=== PATIENT | male | born 1965 | race Caucasian/White ===

== ENCOUNTER 2023-09-24 20:53 | Emergency (ER) | payer OTHER, SELFPAY ==
[2023-09-24 20:53] VITALS: BMI 24.3
[2023-09-24 20:55] VITALS: BP 104/70
[2023-09-24 21:14] LABS: Urine Albumin Negative (Neg - Trace); Urine Bilirubin Negative (Negative); Urine Character Clear (Clear); Urine Color Yellow; Urine Glucose Negative (Negative); Urine Ketone Trace (Negative); Urine Leukocyte Negative (Negative); Urine Nitrite Negative (Negative); Urine Occult Blood 2+ (Negative); Urine Specific Gravity 1.015 (<1.030); Urine Urobilinogen Negative (Neg - 1+)
[2023-09-24 21:15] LABS: % Basophils 0.2 % (0-2); % Eosinophils 0.7 % (0-6); % Immature Granulocytes 0.4 % (0-0.5); % Lymphocytes 11.1 % (20.5-51.1); % Monocytes 8.8 % (1.7-9.3); % Neutrophils 78.8 % (42.2-75.2); Absolute Eosinophils 0.1 10^3/uL (0-0.7); Absolute Immature Granulocytes 0.1 10^3/uL (0-0.05); Absolute Lymphocytes 1.5 10^3/uL (1.2-3.4); Absolute Monocytes 1.2 10^3/uL (0.1-0.6); Absolute Neutrophils 10.6 10^3/uL (1.4-6.5); Hematocrit 39.1 % (39.0-52.0); Hemoglobin 13.6 g/dL (13.0-18.0); Mean Corp Hgb Conc. 34.8 g/dL (33.0-37.0); Mean Corpuscular Hgb 29.8 pg (27.0-31.0); Mean Corpuscular Volume 85.7 fL (80.0-94.0); Mean Platelet Volume 10.8 fL (7.4-10.4); Nucleated Red Blood Cells % 0 % (-); Platelet Count 240 10^3/uL (130-400); Red Blood Cell Count 4.56 10^6/uL (4.70-6.10); Red Cell Dist. Width 12.3 % (11.5-14.5); White Blood Cell Count 13.5 10^3/uL (4.8-10.8)
[2023-09-24 21:20] LABS: Urine Bacteria Few (Negative); Urine White Cell 0-2 /HPF (0-5)
[2023-09-24 21:33] LABS: ALT (SGPT) 16 U/L (0-50); AST (SGOT) 25 U/L (17-59); Albumin 4.5 g/dl (3.5-5.0); Alkaline Phosphatase 79 U/L (38-126); Blood Urea Nitrogen 13 mg/dl (9-20); Calcium 9.3 mg/dl (8.4-10.2); Carbon Dioxide 28 mmol/L (22-30); Chloride 103 mmol/L (98-107); Glucose 110 mg/dl (70-99); Lipase 85 U/L (23-300); Potassium 4.2 mmol/L (3.5-5.1); Sodium 135 mmol/L (135-145); Total Bilirubin 1.1 mg/dl (0.2-1.3); Total Protein 7.4 g/dl (6.3-8.2); eGFR > 60.00
[2023-09-24 22:01] VITALS: BP 113/68
[2023-09-24 23:00] VITALS: BP 113/63
--- NOTE | 2023-09-24 23:15 | ED.GENMED ---
History of Present Illness
General
Chief Complaint: Abdominal Pain
Source: patient, spouse and previous hospital records (Inguinal hernia repair 2009 as well as 2011)
Exam Limitations: none
Time Seen by Provider: 09/24/23 23:05
Nursing documentation reviewed up to this point in time: agreed with
Travel History
Have you had any contact with someone who has COVID-19?: No
Do you have any symptoms of coronavirus? Fever > 100 degrees, chills, cough, shortness of breath, sore throat, loss of taste or smell, muscle aches, or headache?: No
History of Present Illness
History of Present Illness:
This is a 57-year-old gentleman who complains of right lower quadrant pain that began mildly yesterday afternoon/evening. Initially thought he had pulled a muscle as pain began after shoveling snow yesterday. Pain however has been persistent and
progressively worsening throughout the day today with intermittent nausea without vomiting and onset of chills and mild aches tonight. No history of similar episodes of pain.
Pain is worse with movement, improves with lying still. He denies back pain or flank pain, no dysuria and urgency and or hematuria, no diarrhea or constipation. He does admit to decreased appetite this evening.
He has not taken anything for discomfort.
He takes no medicines on a daily basis.
History of right inguinal hernia repair 2009, left inguinal hernia repair 2011.
Past History
Past History
ED Past Medical History: None
ED Past Surgical History: Orthopedic (Foot surgery 1984) and Other (Right inguinal hernia repair 2009, left inguinal hernia repair 2011; nasal surgery 2006 and 2007)
Social History
Tobacco: Non-smoker
Alcohol: Occasional
Drug: None
Personal:
Living: with family
Employment: Employed (teacher)
Family History
Family History: Other (Noncontributory)
Phy Exam
Physical Exam
Physical Exam:
GENERAL: 57-year-old gentleman appears his stated age, awake and alert, appears mildly uncomfortable related to pain. Low-grade fever noted. Spouse at bedside.
EYE: anicteric
NECK: Supple, nontender, no meningismus, no significant adenopathy.
ENT: oral mucosa is moist. No rhinorrhea.
CARDIAC: Regular rate and rhythm. no murmur.
LUNGS: Clear breath sounds bilaterally, no acute respiratory distress, no wheezes/rales/rhonchi
ABDOMEN: Soft, nondistended, exquisite tenderness right lower quadrant, right mid abdomen with mild local guarding, mild rebound, no rigidity, no palpable masses. No inguinal tenderness nor masses, no cvat. normoactive BS.
NEUROLOGICAL: Alert and oriented x3, no focal neuro deficits.
SKIN: Warm and dry, normal color, skin intact. No rash.
MUSCULOSKELETAL: No C/C/E. peripheral pulses are full and equal b/l. No palpable tenderness.
PSYCH: Normal and appropriate interaction.
Course
Orders/Labs/Results
Orders:
Orders
09/24/23 20:57
IV Insert/Care/Rem.- Treatment PRN
09/24/23 21:07
Complete Blood Count/With Diff Urgent
Comprehensive Metabolic Panel Urgent
Lipase Urgent
Urinalysis Reflex To Culture Urgent
Date Specimen was Collected: 09/24/23
Time Specimen was Collected: 20:58
Urine Microscopic Reflex Cult Urgent
09/24/23 23:13
0.9% Sodium Chloride 1000 ml [Nss] 1,000 ml IV BOLUS
HYDROmorphone [Dilaudid] 0.5 mg IV NOW STA
Ondansetron Injectable [Zofran] 4 mg IV NOW STA
09/24/23 23:14
CT Abd/pelvis W Iv Cont Urgent
Comment:
Reason For Exam: RLQ pain x 24 hours, progressive, WBC 13.5, T=99.6
09/25/23 00:34
Piperacillin/Tazo 4.5 Gram [Zosyn] 4.5 gram in 100 ml IV NOW
Abnormal Lab Results
09/24/23
21:07
WBC 13.5 H 10^3/uL
(4.8-10.8)
RBC 4.56 L 10^6/uL
(4.70-6.10)
MPV 10.8 H fL
(7.4-10.4)
Abs Immat Gran (auto) 0.1 H 10^3/uL
(0-0.05)
Absolute Neuts (auto) 10.6 H 10^3/uL
(1.4-6.5)
Absolute Monos (auto) 1.2 H 10^3/uL
(0.1-0.6)
Neutrophils % 78.8 H %
(42.2-75.2)
Lymphocytes % 11.1 L %
(20.5-51.1)
Glucose 110 H mg/dl
(70-99)
Urine Ketones Trace A
(Negative)
Ur Occult Blood Reflex 2+ A
(Negative)
Urine RBC 7-10 A /HPF
(0-2)
Urine Bacteria (Reflex) Few A
(Negative)
09/24/23 21:07
09/24/23 21:07
Vital Signs
Initial and Last Documented VS:
Initial Vital Signs
Temp Pulse Resp BP Pulse Ox
98.0 F 84 19 104/70 96
09/24/23 20:55 09/24/23 20:55 09/24/23 20:55 09/24/23 20:55 09/24/23 20:55
Last Documented Vital Signs
Temp Pulse Resp BP Pulse Ox
99.6 F 84 19 99/87 95
09/24/23 22:18 09/24/23 20:55 09/24/23 20:55 09/25/23 01:00 09/25/23 01:30
MDM/Problems Addressed
Differential Diagnosis Includes:
Concern for acute appendicitis, right colon diverticulitis, epiploic appendagitis, less likely small bowel obstruction.
No risk factors for ischemic bowel.
Labs thus far reveal mildly elevated white blood cell count of 13.5.
Unremarkable chemistries.
Nothing in history nor exam to suggest UTI/pyelonephritis.
Will medicate for pain and nausea, initiate IV fluids and check CT abdomen pelvis.
*Radiology
Radiology exam reviewed: radiology read reviewed (CT shows cecal diverticulitis, normal appendix. No evidence of abscess nor obstruction.)
*Pulse Oximetry
Patient hypoxic: no
*Critical Care Note
Total Time (30-74mins, 75-104mins- exclusive of procedures): Not Applicable
Update Note
Update Note:
Patient feeling improved and resting comfortably after small IV dose of Dilaudid, Zofran, IV fluids.
He continues with mild to moderate tenderness right lower quadrant but markedly improved.
CAT scan shows cecal diverticulitis with mild to moderate inflammatory wall thickening and pericolonic fat stranding centered around a 2.2 cm cecal diverticulum. Normal appendix. No free air nor evidence of abscess.
Patient has been given an IV dose of Zosyn.
We discussed hospitalization for continued pain control which he declines and would rather go home.
Will discharge home with 10-day course of Augmentin.
A prescription for Vicodin for as needed pain and Zofran for as needed nausea.
Recommend he limit his diet to clear liquids over the next 3 days, slowly advance thereafter.
Follow-up with PCP and recommend follow-up with GI as well.
Return precautions discussed.
ED Attending Note
-
Portions of this chart may have been created with voice recognition software.� Occasional wrong word or��sound alike� substitutions may have occurred due to the inherent limitations of voice recognition software.
Discharge Plan
Departure
Patient Disposition: Home (Routine Discharge)
Date of Disposition: 09/25/23
Time of Disposition: 02:02
Patient with high blood pressure during this ER visit?: No
Condition: Good
Discharge Problem:
Cecal diverticulitis
Instructions: Clear Liquid Diet, Diverticulitis (DC)
Prescriptions:
New
amoxicillin-pot clavulanate 875-125 mg tablet
1 tab PO BID Qty: 20 0RF
ondansetron 4 mg tablet,disintegrating
4 mg PO QID PRN (Reason: nausea and vomiting) Qty: 20 0RF
hydrocodone-acetaminophen 5-300 mg tablet
1 tab PO Q8H PRN (Reason: pain) Qty: 10 0RF
Referrals:
Michael Carter MD [Active] - Call in 1-3 days for appt
Matteo Graf DO [Family Provider] - Call in 1-3 days for appt
Stand Alone Forms: Return to Work
Activity Restrictions/Additional Instructions:
Over the next 3 days, limit your diet to clear liquids only. This includes clear juices, Jell-O, sherbet, ice pops, clear soups. Thereafter you can advance to soft bland foods as tolerated.
You can take Tylenol or ibuprofen as needed for mild pain or fever. A prescription for hydrocodone has been provided for as needed moderate pain.
You have been prescribed a 10-day course of Augmentin, an antibiotic to be taken twice daily. Be sure to finish this.
Follow-up with your primary care physician for recheck and we recommend an outpatient evaluation with gastroenterology as well.
Interventions
Interventions:
*Risk Screen - Suicide Last Done: 09/24/23 20:55
*General Assessment Last Done: 09/24/23 20:55
*Neglect/Abuse Screening Last Done: 09/24/23 20:55
*ED COVID-19 Vaccine History Last Done: 09/24/23 20:55
[facility] Assessment Last Done: 09/24/23 22:15
[2023-09-24] MEDS: NSS 1000 IV (23:24)
[2023-09-24] MEDS: ZOFRAN 4 MG IV (23:24)
[2023-09-24] MEDS: DILAUDID 0.5 MG IV (23:25)
[2023-09-24 23:44] VITALS: BP 112/68
[2023-09-25] VITALS: BP 110/63
[2023-09-25] MEDS: ZOSYN 100 IV (00:56)
[2023-09-25 01:00] VITALS: BP 99/87
[2023-09-25 02:00] VITALS: BP 113/63
== END 2023-09-25 02:39 | disposition home or self-care (01) ==
LOC: EMR 20:53
PROVIDERS: Emergency Medicine; EMERGENCY PHYSICIAN Emergency Medicine; FAMILY PHYSICIAN Family Medicine Sports Medicine
DX: K57.32 Diverticulitis of large intestine without perforation or abscess without bleeding (principal)
CPT/HCPCS: 99284; 96374; 96375; 96365; 74177; 80053; 81003; 81015; 83690; 85025; Q9967